=== PATIENT | female | born 1985 | race African-American/Black ===

== ENCOUNTER 2016-07-08 03:08 | Emergency (ER) | payer OTHER ==
[~2016-07-08] VITALS: Ht 165.1 cm; Wt 98.7 kg
[~2016-07-08 03:08] MED LIST: ALEVE220 MG PO; BACTRIM DS TAB1 EACH PO; BIRTH CONTROL; CLEOCIN300 MG PO; CLINDAMYCIN HC150 MG PO; KEFLEX500 MG PO; LOESTRIN 241 TABLET PO; METFORMIN HCL500 MG PO; MOTRIN800 MG PO; NO HOME MEDS; NOHOMEMEDS; NORCO 5/3251 TABLET PO; PERCOCET 5-3251 EACH PO; PERCOCET 5/31 TABLET PO; PROBIOTIC1 EAC1 PO; TAMIFLU75 MG PO; ZITHROMAX Z-PA250 MG PO; ZOFRAN4 MG PO
[2016-07-08 03:50] LABS: HEMATOCRIT 32.2 % (36.0-46.0); MCH 27.3 PG (29.0-34.0); MCHC 34.8 G/DL (30.0-36.0); MCV 78.3 FL (83-99); MEAN PLAT.VOLUME 9.5 uM^3 (9.5-12.4); PLATELET COUNT 280 K/uL (156-360); RBC DIS.WIDTH-CV 13.6 % (11.8-14.6); RBC DIS.WIDTH-SD 39.2 % (39-53); RED BLOOD COUNT 4.11 M/uL (3.80-5.20); WHITE BLOOD COUNT 3.8 K/uL (4.1-10.2)
[2016-07-08 03:56] LABS: CHLORIDE 107 mEq/L (99-109); POTASSIUM 3.5 mEq/L (3.7-5.4); SODIUM 138 mEq/L (136-147)
[2016-07-08 03:58] LABS: GLUCOSE 102 mg/dL (70-99)
[2016-07-08 04:00] LABS: TOTAL BILIRUBIN 0.2 mg/dL (0.0-1.0)
[2016-07-08 04:02] LABS: ANION GAP 10 MEQ/L (2-14); GFR ESTIMATE (CALCULATED) > 59 mL/min/
[2016-07-08 04:03] LABS: UREA NITROGEN (BUN) 11 mg/dL (9-23)
[2016-07-08 04:04] LABS: ALKALINE PHOSPHATASE 73 IU/L (3-129)
[2016-07-08 04:08] LABS: LIPASE 27 U/L (1.0-51.0)
[2016-07-08 04:15] LABS: QUANTITATIVE HCG 2666.6 MIU/ML
[2016-07-08 06:14] LABS: ADD MIUA? YES; BILIRUBIN NEGATIVE; BLOOD LARGE; COLOR YELLOW ((YELLOW)); GLUCOSE (STRIP) NEGATIVE; KETONES NEGATIVE; LEUKOCYTES TRACE; NITRITE NEGATIVE; PROTEIN (STRIP) NEGATIVE; SPECIFIC GRAVITY 1.015 (1.000-1.030); UROBILINOGEN 0.2 MG/DL (0.2-1.0)
[2016-07-08 06:30] LABS: BACTERIA 1+ /HPF; EPITHELIAL CELLS RARE /HPF; MUCUS NONE SEEN /LPF; RED BLOOD CELLS 30-40 /HPF (0-5); UCUL ADDED? NO; WHITE BLOOD CELLS 0-5 /HPF (0-5)
[2016-07-08 06:31] LABS: CASTS NONE SEEN /LPF; CRYSTALS NONE SEEN
[2016-07-08 07:01] VITALS: BP 98/65
== END 2016-07-08 07:02 | disposition home or self-care (01) ==
LOC: EME 03:08
DX: O03.4 Incomplete spontaneous abortion without complication (principal)
CPT/HCPCS: 76856; 80053; 81003; 83690; 84702; 85027; 86900; 86901; 99281; 99285; J2270; J2405; J7030